=== PATIENT | male | born 2000 | race Two or more races ===

== ENCOUNTER 2021-06-17 21:01 | Emergency (ER) | payer OTHER, SELFPAY ==
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
[2021-06-17 21:03] VITALS: BP 133/61; PULSE 113; RESP 16; TEMP 36.1; O2SAT 98; BMI 21.7
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
--- NOTE | 2021-06-17 22:48 | PC.NURSE ---
pt to ct in stretcher and returns to room.
[2021-06-17] MEDS: Diphth,Pertus(ACell),Tet Adult 0.5 ML SYRINGE IM (22:53)
[2021-06-18 00:45] VITALS: BP 121/82; PULSE 86; RESP 16; O2SAT 97
== END 2021-06-18 01:02 | disposition home or self-care (01) ==
PROVIDERS: Emergency Provider Emergency Medicine; PCP Pediatrics
DX: S00.01XA Abrasion of scalp, initial encounter (principal); R42 Dizziness and giddiness; G44.309 Post-traumatic headache, unspecified, not intractable; Y04.8XXA Assault by other bodily force, initial encounter; Y93.9 Activity, unspecified; Y92.9 Unspecified place or not applicable; Y99.9 Unspecified external cause status
CPT/HCPCS: 70450; 90471; 90715; 99284